=== PATIENT | female | born 1955 | race Hispanic/Latino ===

== ENCOUNTER 2016-10-12 10:24 | Outpatient (CLI) | payer MEDICAID ==
[2016-10-12] MEDS ORDERED: NACL ONE (12:15)
--- NOTE | 2016-10-12 13:36 | Cat Scan Report ---
CT scan of chest abdomen and pelvis with IV contrast: Compared to 06/12/16. History: Malignant neoplasm of right breast. Findings: No endobronchial or mediastinal mass. No mediastinal, hilar or axillary adenopathy. No pleural or pericardial effusion. No interval sternal changes. Bilateral emphysematous changes in upper lobes with few bulla right middle lobe and scarring in the left lower lobe. No mass. No significant interval change. Normal liver, pancreas and gallbladder. Enlarged spleen. Normal adrenals and kidney parenchyma and bladder. Minimal free fluid in the peritoneum. No free air. No evidence of adenopathy. Normal aorta. IVC filter and left common iliac stent. Grossly bowel gas pattern unremarkable. Impression: Emphysematous lung findings without interval change. No lung or mediastinal mass. No abdominal mass or adenopathy. Minimal free fluid in the peritoneum. No significant interval change.
--- NOTE | 2016-10-12 14:49 | Nuclear Medicine Report ---
Whole body bone scan: Examination performed at 25 mCi technetium 99 MDP. History: Malignant neoplasm of the breast. Findings: Uniform distribution of activity is noted the calvarium, cervical, thoracic and lumbar spine. Normal activity at ribs, pelvis, hips and extremities. Normal activity in the kidneys and bladder. Impression: Essentially negative whole-body bone scan.
== END 2016-10-12 10:25 | disposition home or self-care (01) ==
LOC: NM 10:24
PROVIDERS: ATTEND Internal Medicine Hematology & Oncology
DX: C50.111 Malignant neoplasm of central portion of right female breast (principal); Z90.13 Acquired absence of bilateral breasts and nipples
CPT/HCPCS: 71260; 74177; 78306; A9503; Q9967

== ENCOUNTER 2017-01-04 07:50 | Outpatient (CLI) | payer MEDICAID ==
[2017-01-04 10:03] LABS: Blood Urea Nitrogen 10 mg/dL (7-17)
[2017-01-04] MEDS ORDERED: NACL ONE (10:47)
--- NOTE | 2017-01-04 13:10 | Cat Scan Report ---
CT scan of chest with IV contrast: Compared to 10/12/16. History: Breast cancer. Findings: No endobronchial or mediastinal mass. No mediastinal, hilar or axillary adenopathy. Multiple bulla identified right and left upper lobe. There is also noted chronic interstitial lung changes bilaterally in the adjacent lung parenchyma. Mild emphysematous changes in the lower lobes. No acute consolidation. No discrete nodularity. Impression: Emphysematous lung changes as detailed above. No discrete nodularity of the lung parenchyma to suggest metastatic disease.
--- NOTE | 2017-01-04 13:15 | Cat Scan Report ---
CT scan of abdomen and pelvis without and with contrast injection: Compared to 10/12/16. History: Breast cancer. Findings: Normal liver spleen pancreas and gallbladder. Normal adrenals. Normal kidneys. Decompressed bladder. No free intraperitoneal fluid or air. No evidence of adenopathy. Gaseous colon with stool in colon. Impression: No liver mass, no abdominal or pelvic mass or adenopathy. No bony metastasis.
--- NOTE | 2017-01-04 14:59 | Nuclear Medicine Report ---
Bone scan. History: Breast cancer. Findings: The activity pattern throughout the axial and appendicular skeleton is normal. Renal activity is noted bilaterally. Impression: Normal study.
== END 2017-01-04 07:51 | disposition home or self-care (01) ==
LOC: NM 07:50
PROVIDERS: ATTEND Internal Medicine Hematology & Oncology
DX: C50.111 Malignant neoplasm of central portion of right female breast (principal); N32.89 Other specified disorders of bladder; Z87.891 Personal history of nicotine dependence
CPT/HCPCS: 36415; 71260; 74178; 78306; 82565; 84520; A9503; Q9967

== ENCOUNTER 2017-04-23 09:07 | Outpatient (CLI) | payer MEDICAID ==
[2017-04-23 10:21] LABS: Blood Urea Nitrogen 16 mg/dL (7-17)
[2017-04-23] MEDS ORDERED: NACL ONE (11:49)
--- NOTE | 2017-04-23 13:03 | Cat Scan Report ---
CT CHEST WITH CONTRAST: HISTORY: Malignant neoplasm of central portion of right breast. TECHNIQUE: Helical CT following IV contrast. Sagittal and coronal reformatted images. FINDINGS: Compared to multiple previous exams with the most recent being 01/04/17. Stable bilateral mastectomy changes are identified. No recurrent chest wall mass or thoracic adenopathy. Heart size is borderline. No pericardial abnormality. The mediastinal vessels are widely patent and within normal limits. The thyroid gland, tracheobronchial tree and esophagus are unremarkable. No mediastinal adenopathy detected. Moderate to severe emphysematous changes are identified bilaterally. No suspicious lung nodule or mass. No pleural effusion or pneumothorax. The bony structures are mildly demineralized with degenerative change. Sternal defect suggesting previous fracture is unchanged. No new suspicious bony lesion. IMPRESSION: Stable findings in the chest since 01/04/17. No evidence for disease recurrence or metastasis.
--- NOTE | 2017-04-23 14:02 | Nuclear Medicine Report ---
BONE SCAN: History: Right breast cancer. Comparison: Bone scan dated 01/04/17. CT chest abdomen and pelvis performed the same day. After injection of isotope, gamma camera imaging of the bony system was done. There is a normal uptake of isotope throughout the bony structures without areas of significantly increased or decreased uptake. Normal uptake in the urinary system is seen. IMPRESSION: Normal bone scan.
--- NOTE | 2017-04-23 14:32 | Cat Scan Report ---
CT ABDOMEN AND PELVIS WITH CONTRAST INDICATION: Malignant neoplasm of central portion of right breast. COMPARISON: 01/04/2017. FINDINGS: Abdomen and pelvis CT performed following oral contrast and intravenous administration of 100 cc of Omnipaque 300. LUNG BASES: Slight nonspecific distal esophageal prominence. ABDOMEN: Homogenous liver and spleen. Though visually grossly unchanged, splenic length is approximately 13.4 cm, sagittal image 90, previously 12.6 cm. Patent veins. Gallbladder, pancreas, adrenals, nonaneurysmal abdominal aorta with few atherosclerotic calcifications, kidneys and opacified bowel within normal limits. Nonspecific exaggerated wall thickness of the proximal ascending colon, axial series 3, images 410-468, possibly in part related to suboptimal distention. Remainder colon grossly unremarkable. Stable IVC filter and left iliac vein stent. No ascites or size significant adenopathy. PELVIS: Uterus again surgically absent. Grossly unremarkable urinary bladder and the rectosigmoid. No free fluid or significant adenopathy. No focal aggressive osseous lesions. Osteopenia possible. CONCLUSION: 1. Slight exaggerated proximal ascending colon wall thickness CT appearance nonspecific for being pathologic versus suboptimal distention. Please correlate clinically with additional workup, if warranted or follow up on subsequent exams. 2. Mild splenomegaly. 3. No other acute CT abnormality or significant interval change with few iatrogenic changes again noted, as above. Thank you for the opportunity to participate in this patient's care.
== END 2017-04-23 09:08 | disposition home or self-care (01) ==
LOC: NM 09:07
PROVIDERS: ATTEND Internal Medicine Hematology & Oncology
DX: C50.111 Malignant neoplasm of central portion of right female breast (principal); R16.1 Splenomegaly, not elsewhere classified; I70.0 Atherosclerosis of aorta; Z90.710 Acquired absence of both cervix and uterus; Z90.13 Acquired absence of bilateral breasts and nipples
CPT/HCPCS: 36415; 71260; 74177; 78306; 82565; 84520; A9503; Q9967

== ENCOUNTER 2017-08-30 08:30 | Outpatient (CLI) | payer MEDICAID ==
[2017-08-30 09:43] LABS: Blood Urea Nitrogen 11 mg/dL (7-17)
[2017-08-30] MEDS ORDERED: FLUSH HEPARIN IV ONE (10:45)
--- NOTE | 2017-08-30 11:58 | Cat Scan Report ---
CT CHEST, ABDOMEN AND PELVIS WITH CONTRAST INDICATION: Breast cancer. COMPARISON: 04/23/2017. FINDINGS: Chest, abdomen and pelvis CT performed following oral contrast and intravenous administration of 100 cc of Omnipaque 300. CHEST: Stable heart and great vessels. Patent central airway. No new or size significant adenopathy. Mild aortic arch calcifications and bilateral mastectomies again noted. Normal imaged thyroid. Right-sided central catheter tip along the SVC is new. Bilateral emphysematous changes, greatest in the upper lobes again noted with mild increased septal thickening/atelectasis/consolidation as in the right lobe, axial series 2, images 57-70. No effusions. Mild nonspecific distal esophageal wall prominence/thickening, not excluded for gastroesophageal reflux and/or hiatal hernia, amongst others. ABDOMEN: Liver, spleen, gallbladder, pancreas, adrenals, nonaneurysmal abdominal aorta with few atherosclerotic calcifications and kidneys appear stable. Slight hepatic surface waviness nonspecific with subtle cirrhosis difficult to entirely exclude. Splenic length 11.3 cm. Approximately 1 cm left lower renal cortical cyst and possible right double renal cortical scarring/indentation posteromedially again noted. Stable IVC filter and left iliac vein stent. Opacified GI tract nonobstructive, though subtle proximal jejunal intussusception incidentally noted on axial series 2, images 339-371, series 2, not significantly different on the delayed phase. No ascites or size significant adenopathy. Probable appendectomy changes. Mild stool throughout colon, greatest along the ascending colon. PELVIS: Two tiny nonspecific foci of air within the urinary bladder anteriorly, axial image 536, series 2, presumed iatrogenic. Otherwise grossly unremarkable urinary bladder and the rectum. Mild sigmoid diverticulosis. Uterus again surgically absent. No free fluid or significant adenopathy. Osteopenia with mild spinal curvature, possibly positional versus scoliosis. Stable old sternal fracture/deformity. Mild mid thoracic spine degenerative changes. Osteopenia. CONCLUSION: 1. New right-sided central catheter and mild increased upper lobe atelectasis/consolidation, right more than left in this patient with underlying COPD, as described. 2. No CT evidence of metastatic disease with interval resolution of mild colitis. 3. Various other incidental findings, including nonobstructive jejunojejunal intussusception, as above. I phoned the above results to Ms. Mitchell NP in Dr. Slade's office, 11:50 AM, 08/30/2017. Thank you for the opportunity to participate in this patient's care.
--- NOTE | 2017-08-31 08:06 | Nuclear Medicine Report ---
BONE SCAN: History: Restaging of breast cancer. Comparison: Bone scan dated 04/23/17. CT chest abdomen and pelvis with contrast performed the same day. After injection of isotope, gamma camera imaging of the bony system was done. There is a normal uptake of isotope throughout the bony structures without areas of significantly increased or decreased uptake. Normal uptake in the urinary system is seen. IMPRESSION: Normal bone scan. No change since 04/23/17. No evidence for metastatic disease to the bones.
== END 2017-08-30 08:31 | disposition home or self-care (01) ==
LOC: NM 08:30
PROVIDERS: ATTEND Internal Medicine Hematology & Oncology
DX: C50.111 Malignant neoplasm of central portion of right female breast (principal); N28.1 Cyst of kidney, acquired; K57.30 Diverticulosis of large intestine without perforation or abscess without bleeding; J98.11 Atelectasis; I70.0 Atherosclerosis of aorta; R93.8 Abnormal findings on diagnostic imaging of other specified body structures; M47.894 Other spondylosis, thoracic region; M85.88 Other specified disorders of bone density and structure, other site; Z90.89 Acquired absence of other organs; Z90.710 Acquired absence of both cervix and uterus; Z90.13 Acquired absence of bilateral breasts and nipples; Z87.891 Personal history of nicotine dependence; Z79.899 Other long term (current) drug therapy
CPT/HCPCS: 36415; 71260; 74177; 78306; 82565; 84520; A9503; Q9967; J1642

== ENCOUNTER 2017-12-12 10:12 | Outpatient (CLI) | payer MEDICAID ==
[2017-12-12 11:27] LABS: Blood Urea Nitrogen 10 mg/dL (7-17)
[2017-12-12] MEDS ORDERED: FLUSH HEPARIN IV ONE ×2 (13:18→13:22)
--- NOTE | 2017-12-12 14:41 | Cat Scan Report ---
CT CHEST, ABDOMEN AND PELVIS WITH CONTRAST: 12/12/17 10:12:00 CLINICAL: Right breast cancer restaging. COMPARISON: 08/30/17 TECHNIQUE: Volumetric acquisition and 1.25 millimeter scan reconstructions after the uneventful intravenous injection of 100 cc of Omnipaque 300. Consent was obtained prior to the administration of the contrast. Oral contrast was also given. FINDINGS: Chest: Stable moderately severe emphysematous changes with peripheral fibrotic changes predominantly in the upper lobes. No pulmonary nodule or mass. Normal aorta, heart and pulmonary arteries. Normal esophagus and trachea. No mediastinal or hilar lymphadenopathy.No axillary or supraclavicular lymphadenopathy. Abdomen: Normal liver size and overall density. No liver mass. Stable subtle surface nodularity of the liver. The portal veins and hepatic veins are normal. The inferior vena cava is normal with an IVC filter. No varices. The gallbladder and bile ducts are normal. Normal stomach, duodenum, pancreas and spleen. The spleen is upper limits of normal in size and measures 11.3. Small kidneys and small bilateral renal cysts. The renal collecting systems and ureters are nondilated. Moderate calcification of the abdominal aorta. No lymphadenopathy.No ascites.Normal small bowel. Normal ascending, transverse and descending colon. An appendix is not identified. Pelvis: Normal urinary bladder and rectum.Absence of the uterus and normal vaginal cuff. Questionable tiny bilateral ovaries. Sigmoid diverticulosis but no diverticulitis. A patent left common iliac vein stent. Bone windows demonstrate no suspicious bone lesion. IMPRESSION:1. No evidence of disease recurrence or metastasis. 2. Stable emphysema. 3. Stable subtle liver nodularity but no other signs to suggest cirrhosis. 4. Small kidneys with normal collecting systems. 5. Mild sigmoid diverticulosis but no diverticulitis.
== END 2017-12-12 10:13 | disposition home or self-care (01) ==
LOC: NM 10:12
PROVIDERS: ATTEND Internal Medicine Hematology & Oncology
DX: C50.111 Malignant neoplasm of central portion of right female breast (principal); R93.8 Abnormal findings on diagnostic imaging of other specified body structures; K57.30 Diverticulosis of large intestine without perforation or abscess without bleeding; K21.9 Gastro-esophageal reflux disease without esophagitis; F32.9 Major depressive disorder, single episode, unspecified; Z87.891 Personal history of nicotine dependence; Z90.49 Acquired absence of other specified parts of digestive tract
CPT/HCPCS: 36415; 71260; 74177; 78306; 82565; 84520; A9503; J1642; Q9967

== ENCOUNTER 2018-08-16 11:09 | Outpatient (CLI) | payer MEDICAID ==
[2018-08-16 12:01] LABS: Blood Urea Nitrogen 15 mg/dL (7-17)
[2018-08-16] MEDS ORDERED: FLUSH HEPARIN IV ONE (14:01)
--- NOTE | 2018-08-27 12:44 | Cat Scan Report ---
FINAL REPORT EXAM: CT CHEST W CONTRAST HISTORY: Cancer study follow up COMPARISON: CT of the chest performed on 04/16/2018 TECHNIQUE: Multiple contiguous axial images were obtained through the chest after administration of IV contrast. Reformatted sagittal images were available for review. FINDINGS: Medical devices: Right upper extremity PICC line with tip of the catheter in the superior vena cava. Thyroid: Normal. Lymph nodes: No significant mediastinal, hilar, or axillary lymphadenopathy. Vasculature: Normal caliber of the thoracic aorta without evidence of aneurysm. Conventional branchin g pattern of the aortic arch. Scattered atherosclerotic calcifications. Normal caliber of the pulmona ry artery. No filling defect to suggest pulmonary embolism. Heart: Normal heart size. Mild coronary artery calcifications. Other mediastinal structures: Normal. Lung parenchyma: Again seen are centrilobular emphysematous changes, most prominent in the bilateral upper lobes with peripheral fibrotic changes. No suspicious nodule or mass. Findings are similar to t he previous study Airways: Patent. No bronchiectasis. Pleura: No pleural effusion or pneumothorax. Chest wall and spine: No suspicious osseous lesions. No acute fracture or dislocation. Surgical clips in the left axillary region. There have been bilateral mastectomies. Upper Abdomen: No acute abnormality. IMPRESSION: No evidence for metastatic disease. Stable emphysematous and peripheral fibrotic change throughout both lungs, most prominent in the bila teral upper lobes. Mild coronary artery calcification.
--- NOTE | 2018-08-27 20:22 | Cat Scan Report ---
FINAL REPORT EXAM: CT CHEST ABD AND PELVIS W CONTRAST TECHNIQUE: Helical CT scanning of the chest, abdomen and pelvis was performed during the intravenous administration of iodinated contrast. Images were reconstructed in the axial and coronal plane. Oral contrast was also given. Delayed abdominal images were also acquired. PRIORS: 04/16/2018 FINDINGS: Chest: There is a right arm PICC line in place with the tip in the superior vena cava. There is moderate coronary artery atherosclerotic calcification. The heart is normal in size. The tho racic aorta is non aneurysmal. There is no hilar or mediastinal adenopathy. There are advanced emphysematous changes in the bilateral upper lung atkinson. There is a focal area pu lmonary fibrosis in the posterior right lower lobe. There are no acute infiltrates. Abdomen/Pelvis: The liver, gallbladder, pancreas, spleen and adrenal glands appear normal. The right kidney appears n ormal. There are 3 small cysts in the left kidney with the largest measuring 9 mm. The uterus is absent. The ovaries appear grossly normal. The stomach appears grossly within normal limits. There are no abnormally dilated loops of bowel or acute inflammatory changes. There is sigmoid divert iculosis without evidence of acute diverticulitis. Oral contrast progressed to the right colon. There is an IVC filter in place in the infrarenal IVC. There is a vascular stent in the left common i liac vein. Internal calcification narrows the lumen and results in greater than 50 percent stenosis w ithout complete occlusion. There is no evidence of thrombosis. There is atherosclerotic calcification in the abdominal aorta without aneurysm. Bones: The bones and subcutaneous soft tissues are unremarkable for age. IMPRESSION: 1. No acute findings in the chest. There is advanced emphysema in the bilateral upper lung atkinson and mild pulmonary fibrosis in the right lower lobe. 2. Moderate coronary artery atherosclerotic disease 3. No acute findings in the abdomen/pelvis 4. There is a left common iliac vein stent that has partial, likely greater than 50 percent stenosis without complete occlusion. HISTORY: Cancer study follow up
== END 2018-08-16 11:10 | disposition home or self-care (01) ==
LOC: CT 11:09
PROVIDERS: ATTEND Internal Medicine Hematology & Oncology
DX: C50.111 Malignant neoplasm of central portion of right female breast (principal); J43.9 Emphysema, unspecified; J84.10 Pulmonary fibrosis, unspecified; I25.10 Atherosclerotic heart disease of native coronary artery without angina pectoris; K21.9 Gastro-esophageal reflux disease without esophagitis; M19.90 Unspecified osteoarthritis, unspecified site; Z90.49 Acquired absence of other specified parts of digestive tract; Z90.710 Acquired absence of both cervix and uterus
CPT/HCPCS: 36415; 71260; 74177; 82565; 84520; J1642; Q9967

== ENCOUNTER 2018-11-11 11:25 | Outpatient (CLI) | payer MEDICAID ==
[2018-11-11 12:27] LABS: Blood Urea Nitrogen 9 mg/dL (7-17)
--- NOTE | 2018-11-11 17:13 | Cat Scan Report ---
PROCEDURE: CT CHEST W CON HISTORY: MALIGNANT NEOPLASM OF RIGHT FEMALE BREAST FINDINGS: Contrast-enhanced CT of the chest was performed following the intravenous administration of iodinated contrast. Comparison is to prior examination of August 16, 2018. These images demonstrate no CT evidence of pulmonary thromboembolic disease. There is no aortic disse ction. The ascending thoracic aorta is mildly dilated at 3.6 cm, unchanged from the prior exam. There is COPD. There is some left apical peripheral pulmonary scarring and there is some linear conso lidation in the medial aspect of the midportion of the left upper lobe, likely scarring, unchanged. There is no pleural or pericardial effusion. There is lipomatous hypertrophy of the inner atrial septum. There is cardiomegaly and coronary artery calcification. There has been a left mastectomy. No significant lymphadenopathy is seen in the chest. An abdominal CT has been performed and will be reported separately IMPRESSION: COPD Cardiomegaly Regions of chronic-appearing pulmonary scarring. No pulmonary mass or infiltrate is seen This document is electronically signed by Jaxon Gerard MD., Nov 11 2018 05:11:16 PM ET
--- NOTE | 2018-11-11 17:19 | Cat Scan Report ---
PROCEDURE: CT ABDOMEN PELVIS W CON HISTORY: MALIGNANT NEOPLASM OF RIGHT FEMALE BREAST FINDINGS: Contrast-enhanced CT of the abdomen and pelvis was performed and data was reformatted in th e sagittal and coronal planes. Comparison is made to prior examination of August 16, 2018. There is cardiomegaly and coronary artery calcification. There has been a left mastectomy. ABDOMEN: There is fatty infiltration of the liver without suspect focal hepatic lesion The spleen is enlarged at 13.2 x 6.0 x 12.3 cm. The adrenal glands are within normal limits. No focal pancreatic lesion is seen. There is mild wall thickening of the gastric antrum likely gastritis. There is no free air. The gallbladder is unremarkable. No focal pancreatic lesion is seen. The adrenal glands are within normal limits. There is no renal or ureteral calculus. There is an inferior vena cava filter. There is aortic atherosclerotic change without aneurysmal dila tion of the aorta. Pelvis: The appendix is not seen. There is no evidence of appendicitis. There is no evidence of diverticuliti s. There has been a hysterectomy. The urinary bladder is within normal limits. There is a stent in the left common iliac vein. IMPRESSION: ABDOMEN: Fatty infiltration of the liver Mild splenomegaly No significant lymphadenopathy is seen in the abdomen Antral gastritis Pelvis: Hysterectomy No evidence of diverticulitis This document is electronically signed by Jaxon Gerard MD., Nov 11 2018 05:17:35 PM ET
== END 2018-11-11 11:26 | disposition home or self-care (01) ==
LOC: CT 11:25
PROVIDERS: ATTEND Internal Medicine Hematology & Oncology
DX: K76.0 Fatty (change of) liver, not elsewhere classified (principal); K29.60 Other gastritis without bleeding; I51.7 Cardiomegaly; I25.10 Atherosclerotic heart disease of native coronary artery without angina pectoris; I70.0 Atherosclerosis of aorta; J44.9 Chronic obstructive pulmonary disease, unspecified; C50.111 Malignant neoplasm of central portion of right female breast; K21.9 Gastro-esophageal reflux disease without esophagitis; M19.90 Unspecified osteoarthritis, unspecified site; Z87.891 Personal history of nicotine dependence; Z90.710 Acquired absence of both cervix and uterus
CPT/HCPCS: 36415; 71260; 74177; 82565; 84520; Q9967

== ENCOUNTER 2019-02-28 10:40 | Outpatient (CLI) | payer MEDICAID ==
[2019-02-28 11:25] LABS: Blood Urea Nitrogen 9 mg/dL (7-17)
--- NOTE | 2019-02-28 16:09 | Cat Scan Report ---
CT CHEST, ABDOMEN, AND PELVIS WITH IV CONTRAST INDICATION / CLINICAL INFORMATION: C50.111)Malignant neoplasm of central portion of right female richard. TECHNIQUE: Axial CT images were obtained through the chest, abdomen, and pelvis after IV contrast. All CT scans at this location are performed using CT dose reduction for ALARA by means of automated exposure contr ol. COMPARISON: CT chest abdomen pelvis 11/11/2018 FINDINGS: HEART: No significant abnormality. THORACIC AORTA: No significant abnormality. MEDIASTINUM and NATHANIEL: No significant abnormality. LUNGS: Extensive destructive bullous emphysema, unchanged with left apical pleural parenchymal scarri ng no pulmonary nodule or mass. PLEURA: No significant pleural effusion. No pneumothorax. ADDITIONAL CHEST FINDINGS: Previous left mastectomy LIVER: No significant abnormality. GALLBLADDER: No significant abnormality. BILE DUCTS: No significant abnormality. PANCREAS: No significant abnormality. SPLEEN: No significant abnormality. ADRENALS: No significant abnormality. RIGHT KIDNEY and URETER: No significant abnormality. LEFT KIDNEY and URETER: No significant abnormality. STOMACH and SMALL BOWEL: No significant abnormality. COLON: Mild sigmoid diverticulosis APPENDIX: Not visualized likely surgically absent PERITONEUM: No free fluid. No free air. No fluid collection. LYMPH NODES: No significant adenopathy. AORTA and ARTERIES: No significant abnormality. IVC and VEINS: IVC filter and left common iliac vein stent with associated chronic thrombus with fill ing defect in calcification left common femoral vein, unchanged. URINARY BLADDER: No significant abnormality. REPRODUCTIVE ORGANS: Uterus surgically absent ADDITIONAL FINDINGS: None. SKELETAL SYSTEM: No significant abnormality. IMPRESSION: 1. No CT evidence for intrathoracic, abdominal or pelvic metastases or interval change. 2. Advanced destructive bullous emphysema, unchanged. 3 IVC filter, chronic left common iliac vein DVT and venous stent, unchanged Signer Name: Mykel Garces MD Signed: 02/28/2019 4:04 PM Workstation Name: [id number]
== END 2019-02-28 10:41 | disposition home or self-care (01) ==
LOC: CT 10:40
PROVIDERS: ATTEND Internal Medicine Hematology & Oncology
DX: C50.111 Malignant neoplasm of central portion of right female breast (principal); K57.30 Diverticulosis of large intestine without perforation or abscess without bleeding; J43.9 Emphysema, unspecified; I82.522 Chronic embolism and thrombosis of left iliac vein; Z90.12 Acquired absence of left breast and nipple
CPT/HCPCS: 36415; 71260; 74177; 82565; 84520; Q9967